=== PATIENT | female | born 1975 | race American Indian/Alaskan Native ===

== ENCOUNTER 2022-08-03 08:40 | Day surgery (SDC) | payer BC, OTHER ==
[~2022-08-03 08:40] MED LIST: Lactated Ringers 1,000 ML IV SCH
[2022-08-03] MEDS ORDERED: Lidocaine 2% 5 ML SDV ONE (10:29)
[2022-08-03] MEDS ORDERED: Propofol 200 MG/20 ML SDV ONE ×2 (10:29→11:28)
[2022-08-03] MEDS ORDERED: fentaNYL 100 MCG/2 ML SDV ONE (10:29)
[2022-08-03] MEDS ORDERED: Lactated Ringers 1,000 ML IV SCH (11:45)
== END 2022-08-03 12:35 | disposition home or self-care (01) ==
LOC: MW.SDS 08:40
PROVIDERS: ATTEND Surgery
DX: Z12.11 Encounter for screening for malignant neoplasm of colon (principal); J45.909 Unspecified asthma, uncomplicated; G47.30 Sleep apnea, unspecified; E66.9 Obesity, unspecified; Z98.890 Other specified postprocedural states; Z80.0 Family history of malignant neoplasm of digestive organs; Z79.899 Other long term (current) drug therapy; Z88.5 Allergy status to narcotic agent
CPT/HCPCS: 45378; 81025; J2704; J3010; J7120; 00812